=== PATIENT | female | born 1980 | race Caucasian/White ===

== ENCOUNTER 2019-02-18 00:51 | Emergency (ER) | payer OTHER ==
[~2019-02-18] VITALS: Ht 165.1 cm; Wt 65.8 kg
[2019-02-18 01:25] VITALS: BP_SYST 120
[2019-02-18] MEDS ORDERED: SERT50TA PO (01:44)
[2019-02-18 03:56] VITALS: BP_SYST 120
== END 2019-02-18 03:55 | disposition home or self-care (01) ==
LOC: SED 00:51
DX: G62.9 Polyneuropathy, unspecified (principal)
CPT/HCPCS: 99281